=== PATIENT | female | born 1935 | race Caucasian/White ===

== ENCOUNTER 2016-08-21 22:03 | Emergency (ER) | payer MEDICARE ==
[2016-08-21 22:50] LABS: BASOPHIL 0.4 % (0-2); EOSINOPHIL 2.3 % (0-7); LYMPHOCYTE 25.3 % (15-48); MCHC 34.9 g/dL (32.0-36.0); MCV 94.5 fL (78.0-100.0); MONOCYTE 7.9 % (0-12); MPV 9.4 fL (6.0-9.5); NEUTROPHIL 64.1 % (41-80); PLT 319 K/uL (150-400); RBC 4.55 M/uL (4.20-5.40); RDW 14.2 % (11.5-14.0); WBC 12.9 K/uL (4.0-10.5)
[2016-08-21 22:58] LABS: INR 1.01 (0.9-1.2); PROTHROMBIN TIME 12.9 SECONDS (11.7-14.0)
[2016-08-21 23:06] LABS: ALBUMIN 4.2 g/dL (3.4-4.8); BILIRUBIN - TOTAL 0.9 mg/dL (0.1-1.0); CREATININE 0.6 mg/dL (0.5-1.0); GLOBULIN (CALCULATION) 4.1 g/dL (2.2-4.2); POTASSIUM 3.2 mmol/L (3.5-5.1); TOTAL PROTEIN 8.3 g/dL (6.4-8.3)
== END 2016-08-22 00:42 | disposition home or self-care (01) ==
LOC: FER 22:03
PROVIDERS: Internal Medicine
DX: L03.116 Cellulitis of left lower limb (principal); L03.115 Cellulitis of right lower limb; E87.6 Hypokalemia; I10 Essential (primary) hypertension; M16.12 Unilateral primary osteoarthritis, left hip; Z87.891 Personal history of nicotine dependence; Z85.038 Personal history of other malignant neoplasm of large intestine; Z79.899 Other long term (current) drug therapy; Z90.49 Acquired absence of other specified parts of digestive tract
CPT/HCPCS: 36415; 71020; 80053; 83880; 85025; 85610; 85730; 87040

== ENCOUNTER 2016-10-18 02:19 | Emergency (ER) | payer MEDICARE ==
[2016-10-18 03:41] LABS: BASOPHIL 0.1 % (0-2); EOSINOPHIL 0 % (0-7); HCT 40.3 % (37.0-47.0); LYMPHOCYTE 13.4 % (15-48); MCH 32.7 pg (25.0-31.0); MCHC 34.7 g/dL (32.0-36.0); MCV 94.2 fL (78.0-100.0); MONOCYTE 14.1 % (0-12); MPV 9.5 fL (6.0-9.5); NEUTROPHIL 72.4 % (41-80); PLT 314 K/uL (150-400); RBC 4.28 M/uL (4.20-5.40); RDW 13.7 % (11.5-14.0); WBC 16.6 K/uL (4.0-10.5)
[2016-10-18 03:49] LABS: INR 0.99 (0.9-1.2); PROTHROMBIN TIME 12.7 SECONDS (11.7-14.0); PTT 28.3 SECONDS (23.2-31.4)
[2016-10-18 04:00] LABS: BILIRUBIN - TOTAL 0.4 mg/dL (0.1-1.0); CREATININE 0.9 mg/dL (0.5-1.0); GLOBULIN (CALCULATION) 4.1 g/dL (2.2-4.2); MAGNESIUM 2.23 mg/dL (1.40-2.10); POTASSIUM 3.8 mmol/L (3.5-5.1); TOTAL PROTEIN 8.1 g/dL (6.4-8.3)
[2016-10-18 04:05] LABS: CKMB 43.33 ng/mL (0.97-4.94); TROPONIN T 0.503 ng/mL
== END 2016-10-18 08:00 | disposition home or self-care (01) ==
LOC: FER 02:19
PROVIDERS: Emergency Medicine
DX: R07.89 Other chest pain (principal); R05 Cough; I10 Essential (primary) hypertension; Z82.49 Family history of ischemic heart disease and other diseases of the circulatory system; Z79.899 Other long term (current) drug therapy
CPT/HCPCS: 36415; 71010; 80053; 82550; 82553; 83735; 83874; 83880; 84484; 85025; 85610; 85730; 93005; 94640

== ENCOUNTER 2016-10-25 19:04 | Inpatient (IN) | payer MEDICARE ==
[~2016-10-25] VITALS: Ht 160 cm; Wt 84.8 kg
[2016-10-26 05:38] LABS: HCT 32.4 % (37.0-47.0); HGB 10.6 g/dl (12.5-16.0); MCH 32.6 pg (25.0-31.0); MCHC 32.7 g/dL (32.0-36.0); MCV 99.7 fL (78.0-100.0); MPV 8.9 fL (6.0-9.5); RBC 3.25 M/uL (4.20-5.40); RDW 14.4 % (11.5-14.0); WBC 12.5 K/uL (4.0-10.5)
[2016-10-26 05:47] LABS: INR 1.11 (0.9-1.2); PROTHROMBIN TIME 13.9 SECONDS (11.7-14.0); PTT 28.7 SECONDS (23.2-31.4)
[2016-10-26 05:59] LABS: ALBUMIN 3.4 g/dL (3.4-4.8); BILIRUBIN - TOTAL 0.6 mg/dL (0.1-1.0); CREATININE 0.9 mg/dL (0.5-1.0); GLOBULIN (CALCULATION) 2.7 g/dL (2.2-4.2); MAGNESIUM 2.18 mg/dL (1.40-2.10); PHOSPHORUS 3.9 mg/dL (2.7-4.5); POTASSIUM 4.3 mmol/L (3.5-5.1); TOTAL PROTEIN 6.1 g/dL (6.4-8.3)
--- NOTE | 2016-10-31 23:18 | NUR ---
AMBIEN 10MG PO HELD THIS PM DUE TO MILD CONFUSION LAST NIGHT ON 10/30/16 HS.
--- NOTE | 2016-11-02 09:33 | NUR ---
AFTER REVIEWING WEIGHTS, THE PATIENT WAS REWEIGHED ON A STANDING SCALE. WEIGHT DOCUMENTED
[2016-11-02 10:00] LABS: BILIRUBIN NEGATIVE (NEGATIVE); BLOOD 1+ Ery/uL (NEGATIVE); COLOR YELLOW (YELLOW); GLUCOSE (U) NORMAL (NORMAL); KETONE (U) NEGATIVE (NEGATIVE); LEUKOCYTES 3+ Leu/uL (NEGATIVE); NITRITE NEGATIVE (NEGATIVE); PROTEIN TRACE (LOW) mg/dL (NEGATIVE); pH 6.5 (5.0-9.0)
[2016-11-02 10:05] LABS: CLARITY CLOUDY (CLEAR)
[2016-11-02 10:10] LABS: URINARY WBC TNTC
[2016-11-02 10:11] LABS: BACTERIA 3+
--- NOTE | 2016-11-08 13:31 | NUR ---
1000 PT VOIDED 550ML IN HAT. PVR 343ML
--- NOTE | 2016-11-09 14:58 | NUR ---
10AM VOIDED 150CC, AND WAS INCONTIENT, POST RESIDUAL BLADDER SCAN 211 2PM VOIDED 100CC, POST SCAN 141CC
--- NOTE | 2016-11-11 05:37 | NUR ---
BLADDER SCAN 563 POST VOID OF 200CC. IN OUT CATH RETURN 700CC YELLOW URINE AT THIS TIME
--- NOTE | 2016-11-11 17:23 | NUR ---
REFUSED CUSHION FOR CHAIR SAYS IT IS "HARD A ROCK AND WORSE THAN SITTING ON A PILLOW" TEARFUL, STATES "IM JUST SICK OF BEING SICK. ID RATHER BE "
--- NOTE | 2016-11-12 12:36 | NUR ---
RES'D HAS BEEN ENCOURAGED TO DRINK FLUIDS ONLY 60CC IN FC BAG OF SIX HOURS INTO SHIFT, CHECKED PLACENENT OF FC, ALSO ENCOURAGE TO SIT UP IN CHAIR AND TAKE SHOWER BUT HAS REFUSED AT THIS TIME
[2016-11-12 16:52] LABS: CREATININE 1.6 mg/dL (0.5-1.0); POTASSIUM 5.6 mmol/L (3.5-5.1)
[2016-11-13 07:51] LABS: CREATININE 1.1 mg/dL (0.5-1.0)
--- NOTE | 2016-11-13 16:25 | NUR ---
1550- PT C/O FEELING LIKE HER "STOMACH IS GOING TO POP" V/S- 115/60 HR- 71, R-18, T-98.2, O2 SATS- 95% ON 2 LITERS NC- SARAVIA CATHETER REPOSITIONED, BLADDER SCAN SHOWS 64 ML. SARAVIA CATHETER IRRIGATED WITH SALINE. PT REPOSITIONED IN BED. BROTHER AND SISTER AT BEDSIDE- 1600- BLADDER RESCANNED-0 ML NOTED. PT FEELING RELIEFE AT THIS TIME, F/C EMPTIED- 700 1620- PT FEELING BETTER. EATING ICE CREAM TALKING WITH FAMILY.
--- NOTE | 2016-11-16 11:23 | NUR ---
SARAVIA CATHETER REMOVED AT 1015. PT HAS VOIDED 200CC SINCE. WILL CONTINUE TO MONITOR OUTPUT
--- NOTE | 2016-11-16 12:17 | NUR ---
SPOT CHECK ON ROOM AIR AFTER AMBULATION 88% O2-1L PER NC APPLIED-SAT IS 93%
[2016-11-17 03:46] LABS: BILIRUBIN NEGATIVE (NEGATIVE); BLOOD NEGATIVE Ery/uL (NEGATIVE); CLARITY CLEAR (CLEAR); COLOR YELLOW (YELLOW); GLUCOSE (U) NORMAL (NORMAL); KETONE (U) NEGATIVE (NEGATIVE); LEUKOCYTES NEGATIVE Leu/uL (NEGATIVE); NITRITE NEGATIVE (NEGATIVE); PROTEIN NEGATIVE (NEGATIVE); SPECIFIC GRAVITY <=1.005 (1.001-1.030); UROBILINOGEN 0.2 mg/dL (0.2-1.0)
[2016-11-17 03:50] LABS: BACTERIA TRACE; URINARY WBC RARE
--- NOTE | 2016-11-18 14:23 | NUR ---
1320 AFTER WALKING WITH THERAPY RES'D STARTED COMPLAINING OF CHEST PAIN FROM FRONT TO BACK. V/S 101/49 LA, 85-HR, 95% 1L OF OXYGEN,PLACED IN BED, AND GAVE NORCO 5/325MG 2 PO AT REQUEST, 1330 B/P 117/55 LA, 89-HR, 97%, 1355 B/P 114/56 LA, 86-HR, 96% BUT FEELING BETTER, [address] MAX, ORDERED EKG AND NTG IF C/O CHEST PAIN AGAIN, PT STATES FEELS BETTER
--- NOTE | 2016-11-18 14:44 | NUR ---
1435 EKG--NORMAL SINUS RHYTHM, REPORTED THIS TO PT AND WILL CONTINUE TO MONITOR
--- NOTE | 2016-11-22 15:59 | NUR ---
PT ATTENDED THE CARE TEAM MT WITH HER COUSIN PARVIZ JAMES. PT REQUESTED TO D/C HOME ON 11/23/16. PT. HAS A ROLLING WALKER. PT. REQUESTED [facility] FOR PT/OT AND NURSING ASSESSMENT. D/C NOTICE AND QUESTIONNAIRE GIVEN.
--- NOTE | 2016-11-23 15:46 | NUR ---
PT. D/C HOME THIS DATE PER HER REQUEST. PT. HAS A ROLLING WALKER. PT. DID NOT REQUIRE HOME O2 UPON DISCHARGE. PT. REQUESTED [facility] FOR PT/OT AND NURSING ASSESSMENT, AND HEART CHECK PROGRAM. D/C NOTICE AND QUESTIONNAIRE GIVEN.
== END 2016-11-23 10:54 | disposition home health service (06) | DRG 303 ==
LOC: FSNU 19:04
PROVIDERS: Internal Medicine; ADMIT Internal Medicine
DX: I25.10 Atherosclerotic heart disease of native coronary artery without angina pectoris (principal); I48.0 Paroxysmal atrial fibrillation; I10 Essential (primary) hypertension; Z95.1 Presence of aortocoronary bypass graft; Z48.812 Encounter for surgical aftercare following surgery on the circulatory system; Z79.01 Long term (current) use of anticoagulants; E78.5 Hyperlipidemia, unspecified; M19.90 Unspecified osteoarthritis, unspecified site; E03.9 Hypothyroidism, unspecified; I25.2 Old myocardial infarction; K21.9 Gastro-esophageal reflux disease without esophagitis; E53.8 Deficiency of other specified B group vitamins; Z90.710 Acquired absence of both cervix and uterus; Z87.891 Personal history of nicotine dependence; Z85.038 Personal history of other malignant neoplasm of large intestine
CPT/HCPCS: 36415; 71020; 80048; 80053; 81001; 82962; 83735; 84100; 85610; 85730; 87076; 87088; 87186; 92526; 92611; 93005; 97110; 97116; 97162; 97167; 97530; 97530-GP; 97535; 97537

== ENCOUNTER 2016-12-02 21:22 | Day surgery (SDCO) | payer MEDICARE ==
[2016-12-02 22:01] LABS: INR 2.33 (0.9-1.2); PROTHROMBIN TIME 24.9 SECONDS (11.7-14.0)
[2016-12-02 22:02] LABS: PTT 47.9 SECONDS (23.2-31.4)
[2016-12-02 22:03] LABS: HCT 33.3 % (37.0-47.0); HGB 10.9 g/dl (12.5-16.0); RBC 3.33 M/uL (4.20-5.40); WBC 14.4 K/uL (4.0-10.5)
[2016-12-02 22:04] LABS: ANISOCYTOSIS MODERATE; EOSINOPHIL(M) 8 % (0-7); LYMPHOCYTE(M) 24 % (15-48); MCH 32.7 pg (25.0-31.0); MCHC 32.7 g/dL (32.0-36.0); MONOCYTE(M) 6 % (0-12); NEUTROPHILS(M) 72 % (41-80); PLT 377 K/uL (150-400); POLYCHROMASIA SLIGHT; TOTAL CELL COUNT 100
[2016-12-02 22:05] LABS: PLATELET ESTIMATE NORMAL; PLATELET MORPHOLOGY NORMAL
[2016-12-02 22:12] LABS: TROPONIN T 0.019 ng/mL
[2016-12-02 22:13] LABS: CREATININE 1.9 mg/dL (0.5-1.0); POTASSIUM 4.8 mmol/L (3.5-5.1)
[2016-12-02 22:25] LABS: LACTIC ACID 2.4 mmol/L (0.5-2.2)
[2016-12-02 22:37] LABS: BILIRUBIN NEGATIVE (NEGATIVE); BLOOD 1+ Ery/uL (NEGATIVE); CLARITY HAZY (CLEAR); COLOR YELLOW (YELLOW); GLUCOSE (U) NORMAL (NORMAL); KETONE (U) NEGATIVE (NEGATIVE); LEUKOCYTES NEGATIVE Leu/uL (NEGATIVE); NITRITE NEGATIVE (NEGATIVE); PROTEIN 1+ mg/dL (NEGATIVE); SPECIFIC GRAVITY 1.025 (1.001-1.030); UROBILINOGEN 0.2 mg/dL (0.2-1.0)
[2016-12-02 22:47] LABS: AMORPHOUS URATES CRYSTALS MODERATE; BACTERIA 1+; MUCOUS MODERATE
[2016-12-02 22:48] LABS: GRANULAR CASTS TRACE
[2016-12-02 22:51] LABS: ALBUMIN 3.8 g/dL (3.4-4.8); BILIRUBIN - DIRECT 0.2 mg/dL (0.0-0.2); BILIRUBIN - TOTAL 0.5 mg/dL (0.1-1.0); GLOBULIN (CALCULATION) 3.9 g/dL (2.2-4.2); TOTAL PROTEIN 7.7 g/dL (6.4-8.3)
[2016-12-03 12:14] LABS: CREATININE 1.4 mg/dL (0.5-1.0)
[2016-12-03 12:16] LABS: CKMB 1.85 ng/mL (0.97-4.94); TROPONIN T 0.015 ng/mL
[2016-12-03 12:20] LABS: BASOPHIL 0.5 % (0-2); EOSINOPHIL 6.3 % (0-7); HCT 32.9 % (37.0-47.0); HGB 10.6 g/dl (12.5-16.0); LYMPHOCYTE 20.7 % (15-48); MCH 32.8 pg (25.0-31.0); MCHC 32.2 g/dL (32.0-36.0); MCV 101.9 fL (78.0-100.0); MONOCYTE 9.1 % (0-12); NEUTROPHIL 63.4 % (41-80); PLT 290 K/uL (150-400); RBC 3.23 M/uL (4.20-5.40); RDW 15.6 % (11.5-14.0); WBC 9.2 K/uL (4.0-10.5)
[2016-12-03 12:55] LABS: RETICULOCYTE COUNT 2.7 % (1.0-2.0)
[2016-12-03 13:09] LABS: IRON 50 ug/dL (44-196); IRON % SATURATION 20 %SAT (20-50); TIBC (TOTAL IRON + UIBC) 244 U/L (228-428); UIBC 194 ug/dL (112-346)
[2016-12-03 13:25] LABS: FOLIC ACID (SERUM) 12.1 ng/mL (5.6-45.8)
== END 2016-12-03 16:42 | disposition home or self-care (01) ==
LOC: FER 21:22 → FMS 23:54
PROVIDERS: Emergency Medicine; ADMIT Internal Medicine
DX: I95.1 Orthostatic hypotension (principal); E86.0 Dehydration; R33.9 Retention of urine, unspecified; N17.9 Acute kidney failure, unspecified; E87.2 Acidosis; I48.0 Paroxysmal atrial fibrillation; I10 Essential (primary) hypertension; I25.10 Atherosclerotic heart disease of native coronary artery without angina pectoris; I25.2 Old myocardial infarction; J44.9 Chronic obstructive pulmonary disease, unspecified; J01.00 Acute maxillary sinusitis, unspecified; Z90.49 Acquired absence of other specified parts of digestive tract; Z85.038 Personal history of other malignant neoplasm of large intestine; Z87.891 Personal history of nicotine dependence; Z95.1 Presence of aortocoronary bypass graft; Z79.82 Long term (current) use of aspirin; Z79.1 Long term (current) use of non-steroidal anti-inflammatories (NSAID); Z79.899 Other long term (current) drug therapy; W07.XXXA Fall from chair, initial encounter
CPT/HCPCS: 36415; 70450; 71010; 71250; 72170; 80048; 80076; 81001; 82550; 82553; 82607; 82746; 83540; 83550; 83605; 83880; 84145; 84484; 85025; 85044; 85610; 85730; 87040; 87088; 93005; 97116; 97161; G0378